=== PATIENT | male | born 1975 ===

== ENCOUNTER → 2022-01-21 | Outpatient (REF) | LOC: M PLAIMG 15:16 | PROVIDERS: ATTEND Internal Medicine | DX: M54.50 Low back pain, unspecified (principal); M25.761 Osteophyte, right knee ==

== ENCOUNTER → 2022-05-13 | Outpatient (REF) | LOC: M PLAIMG 11:31 | PROVIDERS: ATTEND Internal Medicine | DX: M25.562 Pain in left knee (principal); M25.511 Pain in right shoulder ==